=== PATIENT | female | born 1990 | race African-American/Black ===

== ENCOUNTER 2017-01-09 11:20 | Emergency (ER) | payer SELFPAY ==
[~2017-01-09] VITALS: Ht 160 cm; Wt 73.0 kg
[2017-01-09 11:20] VITALS: BP 146/89; PULSE 76; RESP 14; TEMP 98.6; O2SAT 99
--- NOTE | 2017-01-09 11:27 | PD ---
Physical Exam Date Seen by Provider: January 09, 2017 Time Seen by Provider: 11:24 Narrative 26 yo female here for evaluation of facial pain on the left side. Mainly the left nostril. History of allergies. She just came from [place] and states that allergies have improved but she got concerned because now she has a constant pain on the left nare. Unsure if from the mouth from tooth or from sinuses. No bleeding. Pain is 9/10. Takes Advil and benadryl. Vitals sign stable. Patient awaiting bed placement. Data Data Last Documented VS Vital Signs Date Time Temp Pulse Resp B/P Pulse Ox O2 Delivery O2 Flow Rate FiO2 01/09/17 11:20 98.6 76 14 146/89 99 MDM Medical Record Reviewed: Yes Supervised Visit with SHUKRI: Tc Harris January 09, 2017 11:27
[2017-01-09] MEDS ORDERED: FLUT50SP EACH NARE (12:04)
[2017-01-09] MEDS ORDERED: IBUP800T23 PO (12:04)
[2017-01-09] MEDS ORDERED: AUGM875T3 PO (12:04)
--- NOTE | 2017-01-09 12:04 | PD ---
HPI Chief Complaint: Facial Pain or Swelling Time Seen by Provider: 11:57 Travel History International Travel<30 days: No Contact w/Intl Traveler<30days: No Traveled to known affect area: No History of Present Illness HPI Patient is a 26 year old female presented to emergency room evaluation of nasal congestion, facial swelling, left upper jaw pain. Patient reports a history of allergies, she has had nasal congestion for the last month. She has been back in town for approximately one week from [place]. For the last 2 days she's had increased pressure in the left upper jaw, left-sided nasal congestion and swelling. She denies a headache, fevers, chills, nausea, vomiting, shortness of breath, chest pain, abdominal pain. She reports a history of allergic rhinitis. Patient took ibuprofen approximately 2 hours prior to arrival. [facility] Past Medical History Medical other: Yes (allergic rhinitis) Social History Alcohol Use: No Tobacco Use: No Substance Use: No Allergies-Medications (Allergen,Severity, Reaction): Coded Allergies: No Known Allergies (Unverified , 01/09/17) Review of Systems Except as stated in HPI: all other systems reviewed are Neg General / Constitutional: No: Fever, Chills HENT: Positive: Headaches (sinus pressure), Rhinitis, Congestion, Dental Difficulties Physical Exam Narrative GENERAL: Well-nourished, well-developed patient. SKIN: Focused skin assessment warm/dry. HEAD: Normocephalic. Tenderness to palpation of her left maxillary and ethmoid sinuses. Left cheek is mildly edematous with no erythema noted. MOUTH: Mucous membranes moist, no lesions, tongue and gums appear normal. EYES: No scleral icterus. No injection or drainage. NECK: Supple, trachea midline. No JVD or lymphadenopathy. CARDIOVASCULAR: Regular rate and rhythm without murmurs, gallops, or rubs. RESPIRATORY: Breath sounds equal bilaterally. No accessory muscle use. GASTROINTESTINAL: Abdomen soft, non-tender, nondistended. MUSCULOSKELETAL: No cyanosis, or edema. BACK: Nontender without obvious deformity. No CVA tenderness. Data Data Last Documented VS Vital Signs Date Time Temp Pulse Resp B/P Pulse Ox O2 Delivery O2 Flow Rate FiO2 01/09/17 11:20 98.6 76 14 146/89 99 MDM Medical Decision Making Medical Screen Exam Complete: Yes Emergency Medical Condition: Yes Interpretation(s) Vital Signs Date Time Temp Pulse Resp B/P Pulse Ox O2 Delivery O2 Flow Rate FiO2 01/09/17 11:20 98.6 76 14 146/89 99 Differential Diagnosis Dental abscess versus sinusitis versus allergic rhinitis versus other Narrative Course Patient is a 26-year-old female presenting to the emergency room for evaluation of nasal congestion, left facial swelling, left upper jaw pain. Physical examination appears most consistent with maxillary sinusitis. Patient be given fluticasone nasal spray, ibuprofen and Augmentin. She is encouraged to complete full course of a antibiotics as prescribed. She is advised to follow- up with a primary doctor. She was advised to return to emergency room immediately for any new or worsening symptoms. Patient verbalized understanding of instructions. Patient is stable for discharge. Diagnosis Primary Impression: Maxillary sinusitis, acute Qualified Code: J01.00 - Acute maxillary sinusitis, recurrence not specified Referrals: [facility] Primary Care Physician Patient Instructions: General Instructions, Sinusitis (ED) Additional Instructions: Follow-up with a primary doctor or at the [facility] Complete full course of antibiotics as prescribed Use nasal spray daily for best results as prescribed Return to emergency department for any new or worsening symptoms You may also try using a Neti pot as directed Med/Other Pt SpecificInfo: Prescription(s) given Scripts Ibuprofen 800 Mg Ind682 Mg PO Q6HR PRN (PAIN) #40 TAB Ref 0 Prov:Katina Wright 01/09/17 Amoxicillin-Clavulanate (Augmentin)875-125 Mg Tab1 Tab PO BID #20 TAB Ref 0 Prov:Katina Wright 01/09/17 Fluticasone Nasal [place] 50 Mcg/Act [id number] Mcg EACH NARE BID #1 BOTTLE Ref 0 50 mcg/spray Prov:Katina Wright 01/09/17 Disposition: 01 DISCHARGE HOME Condition: Stable Katina Wright January 09, 2017 12:04
== END 2017-01-09 12:30 | disposition home or self-care (01) ==
LOC: NEPK 11:20
DX: J01.00 Acute maxillary sinusitis, unspecified (principal)
CPT/HCPCS: 99283